=== PATIENT | female | born 1965 | race Caucasian/White ===

== ENCOUNTER 2023-02-27 10:54 | Emergency (ER) | payer BC, SELFPAY ==
--- NOTE | 2023-02-27 11:14 | ED.FEMALEGU ---
HPI - Female Genitourinary General Chief complaint: Urogenital-Female Stated complaint: uti symptoms Time Seen by Provider: 02/27/23 11:14 Source: patient Mode of arrival: ambulatory Limitations: no limitations History of Present Illness HPI Narrative: 57-year-old female presents with complaint of lower abdominal cramping, dysuria, frequency for the past 2 days. Afebrile. Denies nausea vomiting diarrhea. No back pain. No history of frequent urinary tract infections. All systems reviewed and negative except as noted above. Related Data Home Medications Medication Instructions Recorded Confirmed fluticasone propionate 110 1 puff inhalation DAILY 02/27/23 02/27/23 mcg/actuation HFA aerosol inhaler (Flovent HFA) levothyroxine 100 mcg tablet 100 mcg PO DAILY 02/27/23 02/27/23 Allergies Allergy/AdvReac Type Severity Reaction Status Date / Time codeine Allergy Hives Verified 02/27/23 11:26 Sulfa (Sulfonamide Allergy Rash Verified 02/27/23 11:26 Antibiotics) Review of Systems Review of Systems: CONSTITUTIONAL: Denies fever, chills, or sweats. EYES: Denies visual changes, redness, or discharge. ENT: Denies rhinorrhea, congestion, sore throat, or otalgia. CARDIOVASCULAR: Denies chest pain, palpitations, or edema. RESPIRATORY: Denies cough or dyspnea. GASTROINTESTINAL: Reports lower abdominal cramping. Denies nausea, vomiting, or diarrhea. GENITOURINARY: reports dysuria, frequency. Denies hematuria. SKIN: Denies rash or itching. MUSCULOSKELETAL: Denies back pain, joint pain, or myalgia. NEUROLOGIC: Denies headache, numbness, or weakness. PSYCHIATRIC: Denies anxiety or depression. All other systems reviewed are negative, except as documented in HPI. PMFSH Comments At time of signature, agree with nursing past medical, surgical, social and family history. There is no relevant family history pertinent to the presenting complaint. Exam Narrative: GENERAL: This is a well-nourished, well-developed patient, in no apparent distress. HEAD: normocephalic, atraumatic. EYES: PERRL. Sclera clear/white. Vision is grossly intact. EARS: External ears normal NOSE: External nose normal NECK: Neck supple, non-tender without lymphadenopathy, masses or thyromegaly. CARDIOVASCULAR: Regular rate and rhythm without murmurs, gallops, or rubs. RESPIRATORY: Clear to auscultation. Breath sounds equal bilaterally. No wheezes, rales, or rhonchi. GASTROINTESTINAL: Abdomen soft, non-tender, nondistended. Bowel sounds are active. No hepato-splenomegaly, or palpable masses. No guarding. SKIN: warm, Dry, intact with no suspicious lesions or rash, good texture and turgor. NEURO: awake, alert, and oriented to person, place and time. There were no obvious focal neurologic abnormalities. EXTREMITIES: No joint tenderness, effusion, or edema noted. Course Course Level of Care: Express Care Visit Vital Signs Vital signs: Vital Signs Temperature 36.7 C 02/27/23 11:17 Pulse Rate 66 02/27/23 11:17 Respiratory Rate 16 02/27/23 11:17 Blood Pressure 124/84 02/27/23 11:17 Pulse Oximetry 100 02/27/23 11:17 Oxygen Delivery Room Air 02/27/23 11:17 Temperature 36.7 C 02/27/23 11:17 Pulse Rate 66 02/27/23 11:17 Respiratory Rate 16 02/27/23 11:17 Blood Pressure 124/84 02/27/23 11:17 Pulse Oximetry 100 02/27/23 11:17 Oxygen Delivery Room Air 02/27/23 11:17 reviewed MDM - Female Genitourinary MDM Narrative Medical decision making narrative: Patient is aware of diagnosis, understands and agrees to treatment plan. Anticipatory guidance given. Patient agrees to follow-up as directed and is aware of reasons to seek care at the emergency department. Portions of this record may have been created with voice recognition software Differential Diagnosis Differential diagnosis: Likely urinary tract infection Lab Data Labs: Urine Glucose Negative
[2023-02-27 11:17] VITALS: BP 124/84; PULSE 66; RESP 16; TEMP 36.7; O2SAT 100
== END 2023-02-27 11:42 | disposition home or self-care (01) ==
PROVIDERS: Emergency Provider Nurse Practitioner Family; PCP Internal Medicine
DX: N39.0 Urinary tract infection, site not specified (principal); E03.9 Hypothyroidism, unspecified
CPT/HCPCS: 81003; 87086; 99213; G0463

== ENCOUNTER 2024-10-05 11:55 | Emergency (ER) | payer OTHER, SELFPAY ==
--- NOTE | ~2024-10-05 | XR_ITS ---
EXAMINATION: XR chest 2V DATE: 10/05/2024 12:49 INDICATION: Painful cough. TECHNIQUE: Frontal and lateral views of the chest were obtained. COMPARISON: None. FINDINGS: There is no pneumonia, pleural effusion, or pneumothorax. The heart size is normal. IMPRESSION: 1. No acute cardiopulmonary disease. Reviewed, dictated and finalized at location A. DATA ARCHITECT
[2024-10-05 12:11] VITALS: BP 134/74; PULSE 73; RESP 16; TEMP 36.7; O2SAT 100
--- NOTE | 2024-10-05 12:20 | ED_ITS ---
HPI - URI/Sore Throat General Chief Complaint: Upper Respiratory Infection Stated Complaint: Fatigue, Ear pain, Chest pain Time Seen by Provider: 10/05/24 12:35 Source: patient, RN notes reviewed and old records reviewed Mode of arrival: ambulatory Limitations: no limitations History of Present Illness HPI Narrative: patient presents with complaints of flu-like symptoms that began 2 days ago. She has not been taking anything for her symptoms. She reports most bothersome symptom is cough and fatigue. She reports that cough is minimally productive. She denies any fever. She is not in any distress, including respiratory distress Related Data Home Medications ?Medication ?Instructions ?Recorded ?Confirmed ?Last Taken ?Type fluticasone propionate 110 1 puff inhalation DAILY 02/27/23 02/27/23 Unknown History mcg/actuation HFA aerosol inhaler (Flovent HFA) levothyroxine 100 mcg tablet 100 mcg PO DAILY 02/27/23 02/27/23 Unknown History Allergies Allergy/AdvReac Type Severity Reaction Status Date / Time codeine Allergy Mild Hives Verified 10/05/24 11:58 Sulfa (Sulfonamide Allergy Mild Rash Verified 10/05/24 11:58 Antibiotics) Review of Systems Review of Systems: All systems reviewed & are unremarkable except as noted in HPI and below Constitutional: Constitutional: Reports no additional constitutional complaints, Reports body ache(s), Reports chills, Reports fatigue and Reports headache(s) ENT: Reports system reviewed and no additional complaints, except as documented, Reports nasal congestion, Reports nasal discharge and Reports sore throat Cardiovascular: Cardiovascular: Reports no additional cardiovascular complaints Respiratory: Respiratory: Reports no additional respiratory complaints and Reports cough Gastrointestinal: Gastrointestinal: Reports no additional gastrointestinal complaints PMFSH Comments At the time of my signature, I reviewed and agree with the nursing past medical, surgical, social, and family history. There is no relevant family history pertinent to the patient complaint. Exam Const: General: cooperative, no acute distress, alert, awake and uncomfortable Orientation/consciousness: oriented to person, oriented to place and oriented to time HENMT: Head: normal to inspection Ears: TM's normal bilaterally Mouth: Yes moist mucous membranes Resp: Effort & Inspection: normal respiratory effort and able to speak in complete sentences Auscultation: clear to auscultation bilaterally, no crackles, no rales, no rhonchi and no wheezes Cardio: Palpation: normal PMI Rate: regular rate Rhythm: regular rhythm Heart sounds: S1 normal heart sound present and S2 normal heart sound present Neuro: General: oriented to person, oriented to place and oriented to time Cranial nerves: Yes CN's II-XII intact bilaterally Psych: Appearance: grossly normal Thought process: Normal thought process present Insight: Good insight present (Psych) Judgement: Good judgement present (Psych) Course Course Level of Care: Express Care Visit Vital Signs Vital signs: Vital Signs Temperature 98.1 F 10/05/24 12:11 Pulse Rate 73 10/05/24 12:11 Respiratory Rate 16 10/05/24 12:11 Blood Pressure 134/74 10/05/24 12:11 Pulse Oximetry 100 10/05/24 12:11 Oxygen Delivery Room Air 10/05/24 12:11 Temperature 98.1 F 10/05/24 12:11 Pulse Rate 73 10/05/24 12:11 Respiratory Rate 16 10/05/24 12:11 Blood Pressure 134/74 10/05/24 12:11 Pulse Oximetry 100 10/05/24 12:11 Oxygen Delivery Room Air 10/05/24 12:11 Reviewed MDM - URI/Sore Throat MDM Narrative Medical decision making narrative: reassuring physical exam, negative COVID, negative flu. Chest x-ray unremarkable. Symptoms likely viral in origin. Supportive care measures discussed. The patient is nontoxic appearing. Discharge instructions reviewed with patient, as well as provided in writing per nursing staff. The instructions also include specific and strict return/GO TO THE ER as well as f/u information. All questions have been answered, and the patient deny any further questions with discharge and discharge plan. Some parts of this dictation were generated by voice recognition software and may contain typographical and/or grammatical inaccuracies. Differential Diagnosis Differential diagnosis: Likely upper respiratory infection, otitis media and sinusitis Medical Records Attestation: I reviewed the patient's medical records. Lab Data Attestation: I reviewed the patient's lab results. Discharge Plan Discharge Clinical Impression: Upper respiratory infection Qualifiers: URI type: unspecified viral URI Qualified Code(s): J06.9 - Acute upper respiratory infection, unspecified Patient Disposition: Home, Self-Care Condition: Stable Instructions: Antibiotic Form, Viral Syndrome (ED) Additional Instructions: use [id number] medications to treat your symptoms. Follow package instructions. Follow-up with primary care provider. Emergency department for new or worse symptoms Patient Language: [place] Prescriptions: No Action levothyroxine 100 mcg tablet 100 mcg PO DAILY fluticasone propionate [Flovent HFA] 110 mcg/actuation HFA aerosol inhaler 1 puff INHALATION DAILY amoxicillin-pot clavulanate [Augmentin] 500-125 mg tablet 1 tablet PO BID 5 Days Qty: 10 0RF Follow-up/Referrals: Apollo,MD Mercedes ([place]heng[place]) [Primary Care Provider] - 2 Weeks Stand Alone Forms: Work/School Release IP Time of Disposition: 13:10
[2024-10-05 12:35] LABS: EDCOVIDSCREEN Negative (Negative); EDINFLUASCREEN Negative (Negative); EDINFLUBSCREEN Negative (Negative)
--- OUTSIDE RECORDS SUMMARY | 2024-10-05 13:05 | XMS_ITS | Encounter Summary ---
Author Organization [facility] Address [address] [place] [address] [place] [address] Care Team Providers Care Mannequin Mold Maker Name Role Phone Get Rodrigues MD Primary Care Provider Unav ailable Encounter Details Date Type Department Care Team (Late st Contact Info) Description 12/02/2021 [employer] Message Enc [facility], [address] [id number] [employer], [facility] Provider monitor results Social History Tobacco Use Types Packs/Day Years Used Date Smoking Tobacco: Never Smokeless Tobacco: Never Alcohol Use Standard Drinks/Week Comments Yes 0 (1 standard drink = 0.6 oz pur e alcohol) beer- 4 a month PHQ-2 Answer Date Recorded PHQ-2 Score - If the patient scores above 3, please move on to questions 3-9 0 10/22/2021 Comments No Sex and Gender Information Value Date Recorded Sex Assigned at Not on file Legal Sex Female 7:09 PM CDT Gender Identity Not on file Sexual Orientation Not on file 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 Unable to assess 11/12/2021 9:15 AM MEDICAL LAB ASSISTANT documented as of this encounter Plan of Treatment Not on file documented as of this encounter Visit Diagnoses Not on filedocumented in this encounter Additional Health Concerns Assessment Noted Time PHQ-9 Depression Total Score: 0 10/22/19 22 8:50 AM MEDICAL LAB ASSISTANT documented as of this encounter Care Teams Mannequin Mold Maker Relationship Specialty Start Date End Date Get Rodrigues MD PCP - General FAMILY PRACTICE 10/18/19 12/31/22 documented as of this encounter
--- OUTSIDE RECORDS SUMMARY | 2024-10-05 13:05 | XMS_ITS | Data Portability ---
Author Organization [facility], [employer] Address [address] [address] Assessment Encounter Date Assessment Date Assessment LastModified by Organization Details LastModified Time 07/30/2022 07/30/[address] Get [facility] Not available 07/30/2022 15:13:38 09/10/2022 09/10/2022 Patient presente d for follow up. Studies ordered as below. Discussed plan with patient/caregiver , who expressed understanding. Follow up as noted below. Transferred care from Dr Get [facility] Not available 09/10/2022 16:10:28 09/14/2023 09/14/2023 Recommends healthy nutrition, including a diet rich in fruits and vegetables, minimizing simple carbohydrates, salt, and saturated fats. Encouraged regular cardiovascular exercise such as walking at least 30 minutes daily, [address] [facility] Not available 09/14/2023 16:36:07 09/15/2024 09/15/2024 Recommends healthy nutrition, including a diet rich in fruits and vegetables, minimizing simple carbohydrates, salt, and saturated fats. Encouraged regular cardiovascular exercise such as walking at least 30 minutes daily, [address] [facility] Not available 09/15/2024 09:42:09 Plan of Treatment Reminders Order Date Submit Date Provider Last Modified By Organization Details Last Modified Time Details Appointments ESTABLISH ED PATIENT 15 2024 07:45A Vineet Bustillos MD Not available Not available Not available Lab HIV (1+2) Ab screen, serum 2021 022 NORBERTO Not available 07/30/2022 15:28:57 lipid panel, blood 2021 022 NORBERTO Not available 07/30/2022 15:28:58 CMP, serum or plasma 2021 NORBERTO Not available 07/30/2022 15:28:59 CBC w/ auto diff 2021 NORBERTO Not available 07/30/2022 15:28:57 urinalysi s complete, reflex culture 2021 NORBERTO Not available 07/30/2022 15:28:58 hepatitis C virus Ab, serum 2021 NORBERTO Not available 07/30/2022 15:28:59 TSH, serum or plasma 2021 NORBERTO Not available 07/30/2022 15:28:58 T4, free, serum 2021 NORBERTO Not available 07/30/2022 15:28:59 T3, free, serum or plasma 2021 NORBERTO Not available 07/30/2022 15:28:57 lipid panel, blood 2022 023 INTERFACE Not available 03/17/2023 06:53:45 CMP, serum or plasma 2022 023 NORBERTO Not available 03/17/2023 06:53:43 TSH, serum or plasma 2022 023 NORBERTO Not available 03/17/2023 06:53:45 T4, free, serum 2022 023 NORBERTO Not available 03/17/2023 06:53:44 T3, free, serum or plasma 2022 023 INTERFACE Not available 03/17/2023 06:53:45 HIV (1+2) Ab screen, serum 2022 023 INTERFACE Not available 03/17/2023 06:53:45 CBC w/ auto diff 2023 024 NORBERTO Not available 09/15/2023 16:12:54 CMP, serum or plasma 2023 024 NORBERTO Not available 09/15/2023 16:12:55 TSH, serum or plasma 2023 024 NORBERTO Not available 09/15/2023 16:12:57 T4, free, serum 2023 024 NORBERTO Not available 09/15/2023 16:12:56 T3, free, serum or plasma 2023 024 NORBERTO Not available 09/15/2023 16:12:56 lipid panel, serum 2024 025 [facility], [address] [facility], [place], [address], 09/15/2024 09:48:06 CMP, serum or plasma 2024 025 [facility], [address] [place], [address], 09/15/2024 09:48:08 CBC w/ auto diff 2024 025 [facility], [address] [place], [address], 09/15/2024 09:48:07 HbA1c (hemoglob in A1c), blood 2024 025 [facility], [address] [place], [address], 09/15/2024 09:48:07 TSH + free T4, serum 2024 025 [facility], [address] [place], [address], 09/15/2024 09:48:06 T3, free, serum or plasma 2024 025 [facility], [address] [place], [address], 09/15/2024 09:48:06 Referral gynecolog ist referral 2021 022 jerzy Ramachandran MD, [address] [place] [address], [address], 08/27/2022 08:35:51 gynecolog ist referral 2022 023 jerzy Ramachandran MD, [address] [facility], [facility] [address], [place], [address], 10/13/2022 09:16:21 gynecolog ist referral 2023 024 jerzy Ramachandran MD, [address] [facility], [address], [place], [address], 09/14/2023 16:47:43 gynecolog ist referral 2024 025 jerzy Ramachandran MD, [address] [facility], [facility] [address], [place], [address], 09/15/2024 09:54:44 gastroent erologist referral 2024 025 jerzy Stoddard MD, [address] [place], [address], 09/15/2024 09:54:44 Procedures None recorded. Surgeries None recorded. Imaging XR, chest, 2 view 2021 [facility] Centralized Scheduling, Centralized Scheduling, [address] [place], [address], 08/06/2022 08:19:42 MAMMO, screening , digital, bilateral 2021 [facility] Centralized Scheduling, Centralized Scheduling, [address] [place], [address], 07/30/2022 15:39:11 bone density 2021 [facility] Centralized Scheduling, Centralized Scheduling, [address] [place], [address], 08/06/2022 08:19:42 XR, chest, 2 view 2022 023 [facility] Patient Access Centralized Scheduling, Centralized Scheduling, [address] [facility] [place], [address], 09/17/2022 08:19:41 MAMMO, screening , digital, bilateral 2022 023 [facility] Patient Access Centralized Scheduling, Centralized Scheduling, [facility] [place], [address], 04/15/2023 12:14:02 bone density 2022 023 [facility] Centralized Scheduling, Centralized Scheduling, [address] [facility] [place], [address], 09/17/2022 08:19:41 MAMMO, screening , digital, bilateral 2023 024 [facility] Patient Access Centralized Scheduling, Centralized Scheduling, [facility] [place], [address], 05/02/2024 14:42:48 electroca rdiogram 2024 025 [facility], [facility], [address] [facility] [address], [place], [address], 09/15/2024 10:52:41 Medication Orders Proair Digihaler 90 mcg/actua tion aerosol powder breath act, sensor [address] [id number], [address], [place], [id number], 11/22/2023 17:18:30 Proair Digihaler 90 mcg/actua tion aerosol powder breath act, sensor [address] [facility] #[id number], [address], [place], [id number], 11/22/2023 17:18:30 levothyro xine 100 mcg tablet 2023 024 NOR[facility]ERT[facility] #[id number], [address] [facility], [place], [place], [id number], 09/14/2023 16:46:48 levothyro xine 100 mcg tablet 2024 025 NOR[facility]ERT[facility], [address] [place] [address], [address], 09/15/2024 09:50:31 Patient TargetsNo targets recorded. Patient Instructions Encounter Date Encounter Id Patient Instructions Last Modified By Organization Details Last Modified Time 07/30/2022 [id number] heart-healthy diet: care instructions Not available 07/30/2022 15:27:58 spirometry testing* NORBERTO Not available 07/30/2022 16:12:21 advised to lose weight Not available 07/30/2022 15:27:59 09/10/2022 [id number] heart-healthy diet: care instructions Not available 09/10/2022 16:41:59 advised to lose weight Not available 09/10/2022 16:41:59 09/14/2023 [id number] Discussed and explained advance directives such as standard forms to the {{patient caregiv er patient and caregiver}}. Face to face discussion lasted for a duration of ___ minutes. [email or web address] Not available 09/14/2023 15:33:14 09/15/2024 [id number] spirometry testing* NORBERTO Not available 09/15/2024 10:53:21 advised to lose weight Not available 09/15/2024 09:47:16 Discussed and explained advance directives such as standard forms to the {{patient caregiv er patient and caregiver}}. Face to face discussion lasted for a duration of ___ minutes. 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 Referral for Gy necologic examination Referring Physician: Carlos Bustillos Internal Medicine, Encounter Date: 09/15/2024 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 for Family history of cancer of colon Referring Physician: Carlos Bustillos Internal Medicine, Encounter Date: 09/15/2024 Results Created Date Observation Date Name Description Value Unit Range Abnormal Flag Note LastModifiedBy Organization Detail LastModifiedTime 08/18/20 22 08/19/2022 LIPID PANEL , STAND VICKIE cholesterol, total 233 mg/dL <200 high Not Available [address], [address], 08/19/2022 04:16:14 08/18/20 22 08/19/2022 LIPID PANEL , STAND VICKIE HDL cholesterol 71 mg/dL > or = 50 normal Not Available [address], [address], 08/19/2022 04:16:14 08/18/20 22 08/19/2022 LIPID PANEL , STAND VICKIE triglyceride s 83 mg/dL <150 normal Not Available [address], [address], 08/19/2022 04:16:14 08/18/20 22 08/19/2022 LIPID PANEL , STAND VICKIE LDL-choleste rol 143 mg/dL _(william c) high Refer ence range : <100 Julia able range <100 mg/dL for prima ry preve ntion ; <70 mg/dL for patie nts with CHD or diabe tic patie nts with > or = 2 CHD risk facto rs. LDL-C is now calcu lated using the [facility] kins manish cortez, which is a valid ated novel metho d provi sully mcclain accur acy than the Fried tere equat ion in the estim ation of LDL-C . Cherry n SS et al. KELSEY. 2013; 310(1 9): 2061- 2068 (http ://ed ucati on.loanDepot jalenBiothera. com/f aq/FA Q164) Not Available [address] [address] [place], [address], 08/19/2022 04:16:14 08/18/20 22 08/19/2022 LIPID PANEL , STAND VICKIE chol/HDLC ratio 3.3 (calc ) <5.0 normal Not Available [address], [address], 08/19/2022 04:16:14 08/18/20 22 08/19/2022 LIPID PANEL , STAND VICKIE non HDL cholesterol 162 mg/dL _(william c) <130 high For patie nts with diabe emeterio plus 1 major ASCVD risk facto r, treat ing to a non-H DL-C goal of <100 mg/dL (LDL- C of <70 mg/dL ) is consi eveline buenrostro n. Not Available [address] [address] [place], [address], 08/19/2022 04:16:14 08/18/20 22 08/19/2022 COMPR EHENS COLBY METAB OLIC PANEL glucose 87 mg/dL 65-99 normal Fasti ng refer ence inter marcell Not Available [address] [address] [place], [address], 08/19/2022 04:16:15 08/18/20 22 08/19/2022 COMPR EHENS COLBY METAB OLIC PANEL urea nitrogen (BUN) 17 mg/dL 7-25 normal Not Available [address] [address] [place], [address], 08/19/2022 04:16:15 08/18/20 22 08/19/2022 COMPR EHENS COLBY METAB OLIC PANEL creatinine 0.81 mg/dL 0.50-1 .03 normal Not Available [address], [address], 08/19/2022 04:16:15 08/18/20 22 08/19/2022 COMPR EHENS COLBY METAB OLIC PANEL eGFR 85 mL/mi n/1.7 3m2 > or = 60 normal The eGFR is based on the CKD-E PI 2020 equat ion. To calcu late the new eGFR from a previ ous Creat inine or Cysta tin C resul t, go to https ://diana pollard.yuliet elizalde.edith samaniego/darío gutiérrez s/ kdoqi /gfr% 5Fcal culat or Not Available [address], [address], 08/19/2022 04:16:15 08/18/20 22 08/19/2022 COMPR EHENS COLBY METAB OLIC PANEL BUN/creatini ne ratio NOT APPLIC ABLE (calc ) 6-22 Not Available [address], [address], 08/19/2022 04:16:15 08/18/20 22 08/19/2022 COMPR EHENS COLBY METAB OLIC PANEL sodium 137 mmol/ L 135-14 6 normal Not Available [address], [address], 08/19/2022 04:16:15 08/18/20 22 08/19/2022 COMPR EHENS COLBY METAB OLIC PANEL potassium 4.0 mmol/ L 3.5-5. 3 normal Not Available [address], [address], 08/19/2022 04:16:15 08/18/20 22 08/19/2022 COMPR EHENS COLBY METAB OLIC PANEL chloride 101 mmol/ L 98-110 normal Not Available [address], [address], 08/19/2022 04:16:15 08/18/20 22 08/19/2022 COMPR EHENS COLBY METAB OLIC PANEL carbon dioxide 29 mmol/ L 20-32 normal Not Available [address], [address], 08/19/2022 04:16:15 08/18/20 22 08/19/2022 COMPR EHENS COLBY METAB OLIC PANEL calcium 9.5 mg/dL 8.6-10 .4 normal Not Available [address], [address], 08/19/2022 04:16:15 08/18/20 22 08/19/2022 COMPR EHENS COLBY METAB OLIC PANEL protein, total 7.2 g/dL 6.1-8. 1 normal Not Available [address], [address], 08/19/2022 04:16:15 08/18/20 22 08/19/2022 COMPR EHENS COLBY METAB OLIC PANEL albumin 4.3 g/dL 3.6-5. 1 normal Not Available [address], [address], 08/19/2022 04:16:15 08/18/20 22 08/19/2022 COMPR EHENS COLBY METAB OLIC PANEL globulin 2.9 g/dL_ (calc ) 1.9-3. 7 normal Not Available [address], [address], 08/19/2022 04:16:15 08/18/20 22 08/19/2022 COMPR EHENS COLBY METAB OLIC PANEL albumin/glob ulin ratio 1.5 (calc ) 1.0-2. 5 normal Not Available [address], [address], 08/19/2022 04:16:15 08/18/20 22 08/19/2022 COMPR EHENS COLBY METAB OLIC PANEL bilirubin, total 0.7 mg/dL 0.2-1. 2 normal Not Available [address], [address], 08/19/2022 04:16:15 08/18/20 22 08/19/2022 COMPR EHENS COLBY METAB OLIC PANEL alkaline phosphatase 68 U/L 37-153 normal Not Available [facility] [employer] [address], [address], 08/19/2022 04:16:15 08/18/20 22 08/19/2022 COMPR EHENS COLBY METAB OLIC PANEL AST 21 U/L 10-35 normal Not Available [address], [address], 08/19/2022 04:16:15 08/18/20 22 08/19/2022 COMPR EHENS COLBY METAB OLIC PANEL ALT 18 U/L 6-29 normal Not Available [address], [address], 08/19/2022 04:16:15 08/18/20 22 08/19/2022 CBC (INCL UDES DIFF/ PLT) white blood cell count 5.4 thous and/u L 3.8-10 .8 normal Not Available [address], [address], 08/19/2022 04:16:16 08/18/20 22 08/19/2022 CBC (INCL UDES DIFF/ PLT) red blood cell count 4.33 radha on/uL 3.80-5 .10 normal Not Available [address], [address], 08/19/2022 04:16:16 08/18/20 22 08/19/2022 CBC (INCL UDES DIFF/ PLT) hemoglobin 13.5 g/dL 11.7-1 5.5 normal Not Available [address], [address], 08/19/2022 04:16:16 08/18/2008/19/2022 CBC (INCL UDES DIFF/ PLT) hematocrit 38.9 % 35.0-4 5.0 normal Not Available [address], [address], 08/19/2022 04:16:16 08/18/20 22 08/19/2022 CBC (INCL UDES DIFF/ PLT) MCV 89.8 fL 80.0-1 00.0 normal Not Available [address], [address], 08/19/2022 04:16:16 08/18/20 22 08/19/2022 CBC (INCL UDES DIFF/ PLT) MCH 31.2 pg 27.0-3 3.0 normal Not Available [address], [address], 08/19/2022 04:16:16 08/18/2008/19/2022 CBC (INCL UDES DIFF/ PLT) MCHC 34.7 g/dL 32.0-3 6.0 normal Not Available [address], [address], 08/19/2022 04:16:16 08/18/20 22 08/19/2022 CBC (INCL UDES DIFF/ PLT) RDW 11.8 % 11.0-1 5.0 normal Not Available [address], [address], 08/19/2022 04:16:16 08/18/2008/19/2022 CBC (INCL UDES DIFF/ PLT) platelet count 209 thous and/u L 140-40 0 normal Not Available [address], [address], 08/19/2022 04:16:16 08/18/20 22 08/19/2022 CBC (INCL UDES DIFF/ PLT) MPV 11.5 fL 7.5-12 .5 normal Not Available [address], [address], 08/19/2022 04:16:16 08/18/20 22 08/19/2022 CBC (INCL UDES DIFF/ PLT) absolute neutrophils 2392 cells /uL 1500-7 800 normal Not Available [address], [address], 08/19/2022 04:16:16 08/18/20 22 08/19/2022 CBC (INCL UDES DIFF/ PLT) absolute lymphocytes 2176 cells /uL 850-39 00 normal Not Available [address], [address], 08/19/2022 04:16:16 08/18/20 22 08/19/2022 CBC (INCL UDES DIFF/ PLT) absolute monocytes 410 cells /uL 200-95 0 normal Not Available [address], [address], 08/19/2022 04:16:16 08/18/20 22 08/19/2022 CBC (INCL UDES DIFF/ PLT) absolute eosinophils 373 cells /uL 15-500 normal Not Available [address], [address], 08/19/2022 04:16:16 08/18/20 22 08/19/2022 CBC (INCL UDES DIFF/ PLT) absolute basophils 49 cells /uL 0-200 normal Not Available [address], [address], 08/19/2022 04:16:16 08/18/20 22 08/19/2022 CBC (INCL UDES DIFF/ PLT) neutrophils 44.3 % normal Not Available [address], [address], 08/19/2022 04:16:16 08/18/20 22 08/19/2022 CBC (INCL UDES DIFF/ PLT) lymphocytes 40.3 % normal Not Available [address], [address], 08/19/2022 04:16:16 08/18/20 22 08/19/2022 CBC (INCL UDES DIFF/ PLT) monocytes 7.6 % normal Not Available [address], [address], 08/19/2022 04:16:16 08/18/20 22 08/19/2022 CBC (INCL UDES DIFF/ PLT) eosinophils 6.9 % normal Not Available [facility] [address], [address], 08/19/2022 04:16:16 08/18/20 22 08/19/2022 CBC (INCL UDES DIFF/ PLT) basophils 0.9 % normal Not Available [address], [address], 08/19/2022 04:16:16 08/18/20 22 08/19/2022 URINA LYSIS , COMPL ETE W/REF ANTONINO TO CULTU RE color YELLOW yellow normal Not Available [address], [address], 08/19/2022 04:16:17 08/18/2008/19/2022 URINA LYSIS , COMPL ETE W/REF ANTONINO TO CULTU RE appearance CLEAR clear normal Not Available [address], [address], 08/19/2022 04:16:17 08/18/2008/19/2022 URINA LYSIS , COMPL ETE W/REF ANTONINO TO CULTU RE specific gravity 1.012 1.001- 1.035 normal Not Available [address], [address], 08/19/2022 04:16:17 08/18/20 22 08/19/2022 URINA LYSIS , COMPL ETE W/REF ANTONINO TO CULTU RE pH 6.5 5.0-8. 0 normal Not Available [address] [address], [place], [address], 08/19/2022 04:16:17 08/18/20 22 08/19/2022 URINA LYSIS , COMPL ETE W/REF ANTONINO TO CULTU RE glucose NEGATI VE negati ve normal Not Available [address] [address] [place], [address], 08/19/2022 04:16:17 08/18/2008/19/2022 URINA LYSIS , COMPL ETE W/REF ANTONINO TO CULTU RE bilirubin NEGATI VE negati ve normal Not Available [address], [place], [address], 08/19/2022 04:16:17 08/18/20 22 08/19/2022 URINA LYSIS , COMPL ETE W/REF ANTONINO TO CULTU RE ketones NEGATI VE negati ve normal Not Available [address] [address] [place], [address], 08/19/2022 04:16:17 08/18/20 22 08/19/2022 URINA LYSIS , COMPL ETE W/REF ANTONINO TO CULTU RE occult blood NEGATI VE negati ve normal Not Available [facility] [address] [address] [place], [address], 08/19/2022 04:16:17 08/18/2008/19/2022 URINA LYSIS , COMPL ETE W/REF ANTONINO TO CULTU RE protein NEGATI VE negati ve normal Not Available [facility] [address] [address] [place], [address], 08/19/2022 04:16:17 08/18/20 22 08/19/2022 URINA LYSIS , COMPL ETE W/REF ANTONINO TO CULTU RE nitrite NEGATI VE negati ve normal Not Available [address], [address], 08/19/2022 04:16:17 08/18/20 22 08/19/2022 URINA LYSIS , COMPL ETE W/REF ANTONINO TO CULTU RE leukocyte esterase NEGATI VE negati ve normal Not Available [address], [address], 08/19/2022 04:16:17 08/18/2008/19/2022 URINA LYSIS , COMPL ETE W/REF ANTONINO TO CULTU RE WBC NONE SEEN /hpf < or = 5 normal Not Available [address], [address], 08/19/2022 04:16:17 08/18/20 22 08/19/2022 URINA LYSIS , COMPL ETE W/REF ANTONINO TO CULTU RE RBC NONE SEEN /hpf < or = 2 normal Not Available [address], [address], 08/19/2022 04:16:17 08/18/20 22 08/19/2022 URINA LYSIS , COMPL ETE W/REF ANTONINO TO CULTU RE squamous epithelial cells NONE SEEN /hpf < or = 5 normal Not Available [address], [address], 08/19/2022 04:16:17 08/18/20 22 08/19/2022 URINA LYSIS , COMPL ETE W/REF ANTONINO TO CULTU RE bacteria NONE SEEN /hpf none seen normal Not Available [address], [address], 08/19/2022 04:16:17 08/18/20 22 08/19/2022 URINA LYSIS , COMPL ETE W/REF ANTONINO TO CULTU RE hyaline cast NONE SEEN /lpf none seen normal Not Available [address] [address] [place], [address], 08/19/2022 04:16:17 08/18/2008/19/2022 REFLE XIVE URINE CULTU RE reflexive urine culture NO CULTU RE INDIC ATED Not Available [facility] [address] [address] [place], [address], 08/19/2022 04:16:18 08/18/20 22 08/19/2022 HEPAT ITIS C AB W/REF L TO HCV RNA, QN, PCR hepatitis C antibody NON-RE ACTIVE non-re active normal Not Available [facility] [address], [address], 08/19/2022 04:16:19 08/18/2008/19/2022 HEPAT ITIS C AB W/REF L TO HCV RNA, QN, PCR index 0.09 <1.00 normal HCV antib jackie was non-r eacti ve. There is no labor atory evide nce of HCV infec tion. In most cases , no furth er actio n is requi red. Howev er, if recen t HCV expos ure is suspe cted, a test for HCV RNA (test code 45527 ) is sugge sted. For addit ional infor josé miguel cortez pleas e refer to http: //[facility]even griffiths stdia gnost ics.c om/fa q/FAQ 22v1 (This link is being provi ded for infor josé miguel tobias/ educa emily l purpo ses only. ) Not Available [facility] [address] [address] [place], [address], 08/19/2022 04:16:19 08/18/2008/19/2022 T4, FREE T4, free 1.2 NG/dL 0.8-1. 8 normal Not Available [facility] [address] [address] [place], [address], 08/19/2022 04:16:19 08/18/20 22 08/19/2022 TSH TSH 2.19 mIU/L 0.40-4 .50 normal Not Available [address], [address], 08/19/2022 04:16:20 08/18/20 22 08/19/2022 T3, FREE T3, free 3.1 pg/mL 2.3-4. 2 normal Not Available [address] [place], [address], 08/19/2022 04:16:21 09/10/19 23 09/10/2022 channing metry testi ng* Spirometry Not Available [facility], [address], [place], [address], 07/30/2022 15:06:01 03/16/20 23 03/17/2023 LIPID PANEL , STAND VICKIE cholesterol, total 213 mg/dL <200 high Not Available [address], [address], 03/17/2023 06:53:41 03/16/20 23 03/17/2023 LIPID PANEL , STAND VICKIE HDL cholesterol 67 mg/dL > or = 50 normal Not Available [address], [address], 03/17/2023 06:53:41 03/16/20 23 03/17/2023 LIPID PANEL , STAND VICKIE triglyceride s 51 mg/dL <150 normal Not Available [facility] [address] [place], [address], 03/17/2023 06:53:41 03/16/2003/17/2023 LIPID PANEL , STAND VICKIE LDL-choleste rol 132 mg/dL _(william c) high Refer ence range : <100 Julia able range <100 mg/dL for prima ry preve ntion ; <70 mg/dL for patie nts with CHD or diabe tic patie nts with > or = 2 CHD risk facto rs. LDL-C is now calcu lated using the [facility] kins manish cortez, which is a valid ated novel gregoria dunbar acy than the Fried tere bradley ion in the estim ation of LDL-C . Cherry cortez SS et al. KELSEY. 2013; 310(1 9): 2061- 2068 (http ://ed ucati on.Qu estDi anitraM.[employer]. com/f aq/FA Q164) Not Available [facility] [address], [place], [address], 03/17/2023 06:53:41 03/16/2003/17/2023 LIPID PANEL , STAND VICKIE chol/HDLC ratio 3.2 (calc ) <5.0 normal Not Available [facility] [address] [address] [place], [address], 03/17/2023 06:53:41 03/16/2003/17/2023 LIPID PANEL , STAND VICKIE non HDL cholesterol 146 mg/dL _(william c) <130 high For patie nts with diabe emeterio plus 1 major ASCVD risk facto r, treat ing to a non-H DL-C goal of <100 mg/dL (LDL- C of <70 mg/dL ) is consi dered a thera peuti c optio n. Not Available [facility] [address], [place], [address], 03/17/2023 06:53:41 03/16/2003/17/2023 HIV 1/2 ANTIG EN/AN TIBOD Y,FOU RTH GENER ATION W/RFL HIV Ag/Ab, 4TH gen NON-RE ACTIVE non-re active normal HIV-1 antig en and HIV-1 /HIV- 2 antib odies were not detec isidoro. There is no labor atory evide nce of HIV infec tion. PLERADHA E NOTE: This infor josé miguel cortez has been discl osed to you from recor ds whose confi denti ality may be prote cted by state law. If your state requi res such prote ction , then the state law prohi bits you from melodyvita everett mariajose furth er discl osure of the infor matio n witho ut the speci fic writt en conse nt of the perso n to whom it perta ins, or as other castro permi tted by law. A gener al autho rizat ion for the relea se of medic al or other infor matio n is NOT suffi cient for this purpo se. For addit ional infor matio n pleas e refer to http: //[facility] catjian cortez.que stdia gnost ics.c om/fa q/FAQ 106 (This link is being provi ded for infor matjian nal/ educa emily l purpo ses only. ) The perfo rmanc e of this assay has not been clini amie valid ated in patie nts less than 2 years old. Not Available [facility] [address], [address], 03/17/2023 06:53:42 03/16/2003/17/2023 COMPR EHENS COLBY METAB OLIC PANEL glucose 86 mg/dL 65-99 normal Fasti ng refer ence inter marcell Not Available [facility] [address], [address], 03/17/2023 06:53:42 03/16/2003/17/2023 COMPR EHENS COLBY METAB OLIC PANEL urea nitrogen (BUN) 15 mg/dL 7-25 normal Not Available [facility] [address], [address], 03/17/2023 06:53:42 03/16/20 23 03/17/2023 COMPR EHENS COLBY METAB OLIC PANEL creatinine 0.88 mg/dL 0.50-1 .03 normal Not Available [facility] [address], [address], 03/17/2023 06:53:42 03/16/20 23 03/17/2023 COMPR EHENS COLBY METAB OLIC PANEL eGFR 77 mL/mi n/1.7 3m2 > or = 60 normal The eGFR is based on the CKD-E PI 2020 equat ion. To calcu late the new eGFR from a previ ous Creat inine or Cysta tin C resul t, go to https ://diana elizalde.o aden/pr ofess ional s/ kdoqi /gfr% 5Fcal culat or Not Available [address] [address] [place], [address], 03/17/2023 06:53:42 03/16/20 23 03/17/2023 COMPR EHENS COLBY METAB OLIC PANEL BUN/creatini ne ratio NOT APPLIC ABLE (calc ) 6-22 Not Available [address] [address] [place], [address], 03/17/2023 06:53:42 03/16/20 23 03/17/2023 COMPR EHENS COLBY METAB OLIC PANEL sodium 140 mmol/ L 135-14 6 normal Not Available [address] [place], [address], 03/17/2023 06:53:42 03/16/20 23 03/17/2023 COMPR EHENS COLBY METAB OLIC PANEL potassium 4.2 mmol/ L 3.5-5. 3 normal Not Available [address] [address] [place], [address], 03/17/2023 06:53:42 03/16/20 23 03/17/2023 COMPR EHENS COLBY METAB OLIC PANEL chloride 103 mmol/ L 98-110 normal Not Available [facility] [address] [address] [place], [address], 03/17/2023 06:53:42 03/16/20 23 03/17/2023 COMPR EHENS COLBY METAB OLIC PANEL carbon dioxide 30 mmol/ L 20-32 normal Not Available [facility] [address] [address] [place], [address], 03/17/2023 06:53:42 03/16/20 23 03/17/2023 COMPR EHENS COLBY METAB OLIC PANEL calcium 9.4 mg/dL 8.6-10 .4 normal Not Available [address], [address], 03/17/2023 06:53:42 03/16/20 23 03/17/2023 COMPR EHENS COLBY METAB OLIC PANEL protein, total 7.1 g/dL 6.1-8. 1 normal Not Available [address], [address], 03/17/2023 06:53:42 03/16/20 23 03/17/2023 COMPR EHENS COLBY METAB OLIC PANEL albumin 4.4 g/dL 3.6-5. 1 normal Not Available [address], [address], 03/17/2023 06:53:42 03/16/20 23 03/17/2023 COMPR EHENS COLBY METAB OLIC PANEL globulin 2.7 g/dL_ (calc ) 1.9-3. 7 normal Not Available [address], [address], 03/17/2023 06:53:42 03/16/20 23 03/17/2023 COMPR EHENS COLBY METAB OLIC PANEL albumin/glob ulin ratio 1.6 (calc ) 1.0-2. 5 normal Not Available [address], [address], 03/17/2023 06:53:42 03/16/20 23 03/17/2023 COMPR EHENS COLBY METAB OLIC PANEL bilirubin, total 0.5 mg/dL 0.2-1. 2 normal Not Available [address], [address], 03/17/2023 06:53:42 03/16/20 23 03/17/2023 COMPR EHENS COLBY METAB OLIC PANEL alkaline phosphatase 65 U/L 37-153 normal Not Available [facility] [employer] [address], [address], 03/17/2023 06:53:42 03/16/20 23 03/17/2023 COMPR EHENS COLBY METAB OLIC PANEL AST 21 U/L 10-35 normal Not Available [address], [address], 03/17/2023 06:53:42 03/16/20 23 03/17/2023 COMPR EHENS COLBY METAB OLIC PANEL ALT 14 U/L 6-29 normal Not Available [address], [address], 03/17/2023 06:53:42 03/16/20 23 03/17/2023 T3, TOTAL T3, total 111 NG/dL 76-181 normal Not Available [address], [address], 03/17/2023 06:53:43 03/16/20 23 03/17/2023 T4, FREE T4, free 1.3 NG/dL 0.8-1. 8 normal Not Available [address], [address], 03/17/2023 06:53:44 03/16/2003/17/2023 TSH TSH 1.80 mIU/L 0.40-4 .50 normal Not Available [facility] [address], [address], 03/17/2023 06:53:45 09/14/19 24 09/14/2023 COMPL ETE CBC W/AUT O DIFF WBC white blood cell count 5.8 thous and/u L 3.5-10 .0 Not Available [facility] (Main Location) [address] ,[place], [address], 09/15/2023 16:12:54 09/14/19 24 09/14/2023 COMPL ETE CBC W/AUT O DIFF WBC red blood cell count 4.3 radha on/uL 3.5-5. 5 Not Available [facility] (Main Location) [address] ,, [place], [address], 09/15/2023 16:12:54 09/14/19 24 09/14/2023 COMPL ETE CBC W/AUT O DIFF WBC hemoglobin 13.3 g/dL 11.5-1 6.5 Not Available [facility] [address] ,, [place], [address], 09/15/2023 16:12:54 09/14/19 24 09/14/2023 COMPL ETE CBC W/AUT O DIFF WBC hematocrit 41 % 35-55 Not Available [facility] (Main Location) [address] ,, [place], [address], 09/15/2023 16:12:54 09/14/19 24 09/14/2023 COMPL ETE CBC W/AUT O DIFF WBC MCH 31 pg 25-35 Not Available [facility] (Main Location) [address] ,, [place], [address], 09/15/2023 16:12:54 09/14/19 24 09/14/2023 COMPL ETE CBC W/AUT O DIFF WBC MCHC 33 g/dL 31-38 Not Available [facility] (Main Location) [address] ,, [place], [address], 09/15/2023 16:12:54 09/14/19 24 09/14/2023 COMPL ETE CBC W/AUT O DIFF WBC MCV 94 fL 75-100 Not Available [facility]Main Location[facility] [address] ,, [place], [address], 09/15/2023 16:12:54 09/14/19 24 09/14/2023 COMPL ETE CBC W/AUT O DIFF WBC RDW-CV 12 % 11-15 Not Available [facility]Main Location[facility] [address] ,, [place], [address], 09/15/2023 16:12:54 09/14/19 24 09/14/2023 COMPL ETE CBC W/AUT O DIFF WBC neutrophils% 56.4 % Not Available [facility] (Main Location) [facility] [address] ,, [place], [address], 09/15/2023 16:12:54 09/14/19 24 09/14/2023 COMPL ETE CBC W/AUT O DIFF WBC lymphocytes% 34.6 % Not Available [facility]Main Location[facility] [address] ,, [place], [address], 09/15/2023 16:12:54 09/14/19 24 09/14/2023 COMPL ETE CBC W/AUT O DIFF WBC monocytes% 6.2 % Not Available [facility] (Main Location) [facility] [address] ,, [place], [address], 09/15/2023 16:12:54 09/14/19 24 09/14/2023 COMPL ETE CBC W/AUT O DIFF WBC eosinophil % 1.9 % 0.0-7. 0 Not Available [facility]Main [facility] [address] ,, [place], [address], 09/15/2023 16:12:54 09/14/19 24 09/14/2023 COMPL ETE CBC W/AUT O DIFF WBC basophil % 0.7 % 0.0-3. 0 Not Available [facility] (Main Location) [facility] [address] ,, [place], [address], 09/15/2023 16:12:54 09/14/19 24 09/14/2023 COMPL ETE CBC W/AUT O DIFF WBC absolute neutrophils 3.3 cells /uL 1.5-7. 8 Not Available [facility] (Main Location) [facility] [address] ,, [place], [address], 09/15/2023 16:12:54 09/14/19 24 09/14/2023 COMPL ETE CBC W/AUT O DIFF WBC absolute lymphocytes 2.02 cells /uL 0.85-3 .90 Not Available [facility]Main [facility] [address] ,, [place], [address], 09/15/2023 16:12:54 09/14/19 24 09/14/2023 COMPL ETE CBC W/AUT O DIFF WBC absolute monocytes 0.4 cells /uL 0.2-1. 0 Not Available [facility]Main Location[facility] [address] ,, [place], [address], 09/15/2023 16:12:54 09/14/19 24 09/14/2023 COMPL ETE CBC W/AUT O DIFF WBC absolute eosinophils 0.1 cells /uL 0.0-0. 5 Not Available [facility]Main [facility] [address] ,, [place], [address], 09/15/2023 16:12:54 09/14/19 24 09/14/2023 COMPL ETE CBC W/AUT O DIFF WBC absolute basophils 0.0 cells /uL 0.0-0. 2 Not Available [facility]Main Location[facility] ,, [place], [address], 09/15/2023 16:12:54 09/14/19 24 09/14/2023 COMPL ETE CBC W/AUT O DIFF WBC platelet count 226 thous and/u L 100-40 0 Not Available [facility]Main Location[facility] [address] ,, [place], [address], 09/15/2023 16:12:54 09/14/19 24 09/14/2023 CMP (COMP REHEN SIVE METAB OLIC PANEL ) glucose 105 mg/dL 74-99 high Not Available [facility] (Main Location) [facility] [address] ,, [place], [address], 09/15/2023 16:12:55 09/14/19 24 09/14/2023 CMP (COMP REHEN SIVE METAB OLIC PANEL ) urea nitrogen, blood (BUN) 14 mg/dL 6-20 Not Available [facility] (Main Location) [address] [place] [address] [address] ,, [place], [address], 09/15/2023 16:12:55 09/14/19 24 09/14/2023 CMP (COMP REHEN SIVE METAB OLIC PANEL ) total bilirubin 0.3 mg/dL 0.0-1. 2 Not Available [facility] (Main Location) [address] [place] [address] [address] ,, [place], [address], 09/15/2023 16:12:55 09/14/19 24 09/14/2023 CMP (COMP REHEN SIVE METAB OLIC PANEL ) total protein 6.8 g/dL 6.6-8. 7 Not Available [facility] (Main Location) [address] [place] [address] [address] ,, [place], [address], 09/15/2023 16:12:55 09/14/19 24 09/14/2023 CMP (COMP REHEN SIVE METAB OLIC PANEL ) alanine aminotransfe rase (ALT) 20 U/L 0-33 Not Available [facility] (Main Location) [address] [place] [address] [address] ,, [place], [address], 09/15/2023 16:12:55 09/14/19 24 09/14/2023 CMP (COMP REHEN SIVE METAB OLIC PANEL ) alkaline phosphatase 79 U/L 40-130 Not Available [facility] (Main Location) [address] [place] [address] [address] ,, [place], [address], 09/15/2023 16:12:55 09/14/19 24 09/14/2023 CMP (COMP REHEN SIVE METAB OLIC PANEL ) aspartate aminotransfe rase (AST) 26 U/L 0-32 Not Available [facility] (Main Location) [address] [place] [address]. [address] ,, [place], [address], 09/15/2023 16:12:55 09/14/19 24 09/14/2023 CMP (COMP REHEN SIVE METAB OLIC PANEL ) calcium 9.3 mg/dL 8.6-10 .2 Not Available [facility] (Main Location) [address] [place], [place] [address] ,, [place], [address], 09/15/2023 16:12:55 09/14/19 24 09/14/2023 CMP (COMP REHEN SIVE METAB OLIC PANEL ) albumin 4.4 g/dL 3.5-5. 2 Not Available [facility] (Main Location) [address] [place] [address] [address] ,, [place], [address], 09/15/2023 16:12:55 09/14/19 24 09/14/2023 CMP (COMP REHEN SIVE METAB OLIC PANEL ) CO2 30 mmol/ L 22-29 high Not Available [facility] (Main Location) [address] [place] [address] [address] ,, [place], [address], 09/15/2023 16:12:55 09/14/19 24 09/14/2023 CMP (COMP REHEN SIVE METAB OLIC PANEL ) creatinine, serum 0.8 mg/dL 0.5-0. 9 Not Available [facility] (Main Location) [address] [place], [place] [address] ,, [place], [address], 09/15/2023 16:12:55 09/14/19 24 09/14/2023 CMP (COMP REHEN SIVE METAB OLIC PANEL ) sodium, serum 141 mmol/ L 136-14 5 Not Available [facility] (Main Location) [address] [place] [address] [address] ,, [place], [address], 09/15/2023 16:12:55 09/14/19 24 09/14/2023 CMP (COMP REHEN SIVE METAB OLIC PANEL ) potassium, serum 4.6 mmol/ L 3.5-5. 1 Not Available [facility] (Main Location) [address] [place] [address] [address] ,, [place], [address], 09/15/2023 16:12:55 09/14/19 24 09/14/2023 CMP (COMP REHEN SIVE METAB OLIC PANEL ) chloride, serum 103 mmol/ L 98-107 Not Available [facility] (Main Location) [facility] ,, [place], [address], 09/15/2023 16:12:55 09/14/19 24 09/14/2023 CMP (COMP REHEN SIVE METAB OLIC PANEL ) eGFR 102 >59 Persi stent reduc tion for 3 month s or more in an eGFR <60 mL/mi n/1.7 3 m2 defin es CKD. Patie nts with eGFR value s>/=6 0 mL/mi n/1.7 3 m2 may also have CKD if evide nce of persi stent protu niuri a is prese nt. Addit ional infor matjian n may be found at www.k doqi. org. Not Available [facility] (Main Location) [address] [place], [place] [address] ,, [place], [address], 09/15/2023 16:12:55 09/14/19 24 09/14/2023 FREE TRIIO DOTHY MAGNOLIA E (FT3) FT3 2.6 pg/mL 1.5-4. 1 Not Available [facility] (Main Location) [address] [place], [place] [address] ,, [place], [address], 09/15/2023 16:12:56 09/14/19 24 09/14/2023 FREE THYRO XINE (FT4) FT4 1.35 NG/dL 0.93-1 .70 Not Available [facility] (Main Location) [address] [place], [place] [address] ,, [place], [address], 09/15/2023 16:12:56 09/14/19 24 09/14/2023 THYRO ID STIMU LATIN G HORMO NE (TSH) TSH 0.67 ?IU/m L 0.27-4 .20 Not Available [facility] (Main Location) [address] [place], [place] [address] ,, [place], [address], 09/15/2023 16:12:57 09/20/19 25 09/20/2024 channing metry testi ng* Spirometry Not Available [facility] [address] [facility] [address], [place], [address], 09/15/2024 09:22:29 07/30/20 22 07/30/2022 channing metry testi ng* No observ ation record ed. [address] [facility] [address], [place], [address], 09/10/2022 16:45:05 04/15/20 23 04/10/2023 MAMMO , scree kelechi, digit al, bilat eral No observ ation record ed. [address] [facility] [place], [address], 09/14/2023 16:47:42 05/02/20 24 04/29/2024 MAMMO , scree kelechi, digit al, bilat eral No observ ation record ed. [facility] [address] [place], [address], Ph [phone] 05/16/2024 08:18:41 09/15/19 25 09/20/2024 elect rocar diogr am No observ ation record ed. [facility] [address] [facility] [address], [place], [address], 09/20/2024 12:34:51 09/15/19 25 09/15/2024 elect rocar diogr am No observ ation record ed. [facility] [address] [facility] [address], [place], [address], 09/20/2024 12:35:34 09/15/19 25 09/15/2024 channing metry testi ng* No observ ation record ed. [facility] [address], [place], [address], 09/20/2024 12:35:26 Result Notes None recorded. Problems Name Problem SNOMED Code Status Onset Date Resolution Date Notes Provider Name and Address Organization Details Recorded Time Unintentional weight loss 312595153 Active 2022 Not Available [facility] 11:42:06 Asthma 062534437 Active 2022 Not Available [facility] 11:42:06 Hyperlipidemi a 13254672 Active 2022 Not Available [facility] 11:42:06 Hypothyroidis m 22257329 Active 2022 Not Available [facility] 11:42:06 Problem Notes None recorded. 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 Carlos Bustillos MD [address], [place], [address], [facility] 07/30/2022 15:20:11 Imaging Results Imaging Date Name Status LastModified by Organization Details LastModified Time 07/30/2022 spirometry testing* completed [address], [facility] [address], [place], [address], 09/10/2022 16:45:05 04/10/2023 MAMMO, screening, digital, bilateral completed [address] [facility] [place], [address], 09/14/2023 16:47:42 04/29/2024 MAMMO, screening, digital, bilateral completed jerzy [facility] Medicine [facility] [address] [place], [address], Ph [phone] 05/16/2024 08:18:41 09/20/2024 electrocardiogram completed torie [employer] [address], [place], [address], 09/20/2024 12:34:51 09/15/2024 electrocardiogram completed torie [employer] [address], [place], [address], 09/20/2024 12:35:34 09/15/2024 spirometry testing* completed torie Morales [employer] [address] [facility] [address], [place], [address], 09/20/2024 12:35:26 Procedure Notes None recorded. Medical Equipment None Reported. Allergies Allergen ID Allergen Name Allergen Category Reaction Reaction Severity Criticality Documentation Date Start Date Code Code System Note Provider Name and Address Organization Details Recorded Time 47674 Substance with sulfonami de structure and antibacte rial mechanism of action (substanc e) medicatio n rash Not available Not available 07/30/2022 79772 8003 [facility]ED [facility] 14:13:09 [address] codeine medicatio n hives Not available Not available 07/30/2022 2670 RxNorm [facility] 14:13:26 [address] Singulair medicatio n seizure Not available Not available 07/30/2022 51210 9 RxNorm [facility] 14:13:45 Medications Name Sig Start Date Stop Date Status Note LastModified by Organization Details LastModified Time cyclobenz aprine 10 mg tablet TAKE 1 TABLET BY MOUTH THREE TIMES DAILY active Not Available Not Available No t Available prednison e 10 mg tablet 09/14 completed Not Available Not Available Not Available azithromy ariadne 250 mg tablet 07/30 completed Not Available Not Available Not Available peg-elect rolyte solution 420 gram oral solution MIX AND DRINK DIRECTED 07/30 completed Not Available Not Available Not Available levothyro xine 100 mcg tablet Take 1 tablet every day by oral route in the morning. 2024 active Not Available Not Available Not Avai lable benzonata te 100 mg capsule 07/30 completed Not Available Not Available Not Available promethaz ine 25 mg tablet TAKE 1/2 TABLET BY MOUTH EVERY 6 HOURS NEEDED FOR NAUSEA 07/30 completed Not Available Not Available Not Available Advair Diskus 250 mcg-50 mcg/dose powder for inhalatio n USE 1 INHALATI ON EVERY 12 HOURS 07/30 completed -- now on flovent Not Available Not Available Not Available estradiol 0.01% (0.1 mg/gram) vaginal cream active Not Available Not Available Not Available methylpre dnisolone 4 mg tablets in a dose pack FOLLOW PACKAGE DIRECTIO NS 07/30 completed Not Available Not Available Not Available amoxicill in 500 mg-potass ium clavulana te 125 mg tablet TAKE 1 TABLET BY MOUTH TWICE DAILY FOR 5 DAYS 09/14 completed Not Available Not Available Not Available tobramyci n 0.3 %-dexamet hasone 0.1 % eye drops,berta pension 07/30 completed Not Available Not Available Not Available Flovent HFA 110 mcg/actua tion aerosol inhaler INHALE 1 PUFF TWICE A DAY BY INHALATI ON ROUTE 06/06 completed Not Available Not Available Not Available Asmanex HFA 100 mcg/actua tion aerosol inhaler 08/03 completed -- currentl y on Qvar; will change to Trelegy due to nationwi de shortage Not Available Not Available Not Available Qvar RediHaler 40 mcg/actua tion HFA breath activated aerosol Inhale 2 puffs twice a day by inhalati on route for 90 days. 08/03 completed -- nation-w [place] shortage -- changed to Trelegy Not Available Not Available Not Available Proair Digihaler 90 mcg/actua tion aerosol powder breath act, sensor 2 puffs up to 4 times a days as needed only; Must go to the [facility] if no relief after the 4th treatmen t. 11/21 completed Not Available Not Available Not Available Maria De Jesus Ellipta 200 mcg-62.5 mcg-25 mcg powder for inhalatio n Inhale 1 puff every day by inhalati on route for 90 days. 09/15 completed -- had chest pain with it Not Available Not Available Not Available Vitals Date Recorded Body height Body mass index (BMI) Body weight Respiratory rate Body temperature Heart rate Systolic blood pressure Diastolic blood pressure Provider Name and Address Organization Details Last Updated DateTime 2 165.1 cm 26.6 kg/m2 04873.7 8 g 16 /min 98 [degF] 90 /min 135 mm[Hg] 98 mm[Hg] [facility] 2 14:29:38 Date Recorded Body height Body mass index (BMI) Body weight Respiratory rate Body temperature Heart rate Systolic blood pressure Diastolic blood pressure Provider Name and Address Organization Details Last Updated DateTime 3 165.1 cm 26.6 kg/m2 44224.7 8 g 16 /min 97.1 [degF] 76 /min 126 mm[Hg] 81 mm[Hg] [facility] 3 15:34:05 Date Recorded Heart rate Respiratory rate Body temperature Body height Body mass index (BMI) Body weight Systolic blood pressure Diastolic blood pressure Provider Name and Address Organization Details Last Updated DateTime 4 81 /min 16 /min 97.4 [degF] 165.1 cm 24.1 kg/m2 82547.8 9 g 124 mm[Hg] 77 mm[Hg] [facility] 4 15:33:28 Date Recorded Heart rate Respiratory rate Body temperature Body height Body mass index (BMI) Body weight Systolic blood pressure Diastolic blood pressure Provider Name and Address Organization Details Last Updated DateTime 5 93 /min 16 /min 96.1 [degF] 165.1 cm 25 kg/m2 75133.8 6 g 135 mm[Hg] 73 mm[Hg] [facility] 08:52:32 Social History Question Answer Notes LastModified by Organizat ion Details LastModified Time Tobacco Smoking Status Never Smoker Tona Farrell [facility] 07/30/2022 14:16:56 Do You Have An Advance Directive? No Information not available 09/10/2022 What Is Your Level Of Alcohol Consumption? Occasional Information not available 07/30/2022 How Many Years Have You Consumed Alcohol? 20 Information not available 07/30/2022 Do You Wear A Helmet When Biking? No Information not available 09/10/2022 Are You Blind Or Do You Have Difficulty Seeing? No Information not available 09/10/2022 Is Blood Transfusion Acceptable In An Emergency? Yes Information not available 09/10/2022 What Is Your Level Of Caffeine Consumption? Occasional Information not available 09/10/2022 What Type Of Upsetter Helper Do You Use? None Information not available 09/10/2022 What Is Your Code Status? Full Code Unless She Is In Bad Shape And Does Not Need To Be Saved Information not available 09/10/2022 In The 14 Days Before Symptom Onset, Have You Had Close Contact With A Laboratory-confi rmed COVID-19 While That Case Was Ill? No Information not available 09/10/2022 In The 14 Days Before Symptom Onset, Have You Had Close Contact With A Person Who Is Under Investigation For COVID-19 While That Person Was Ill? No Information not available 09/10/2022 Have You Been To An Area Known To Be High Risk For COVID-19? No Information not available 09/10/2022 Are You Currently Employed? Yes [employer] Information not available 09/10/2022 Are You Deaf Or Do You Have Serious Difficulty Hearing? No Information not available 09/10/2022 What Type Of Diet Are You Following? REGULAR Information not available 09/10/2022 Have You Processed Blood Or Body Fluids From An Ebola Virus Disease Patient Without Appropriate PPE? No Information not available 09/10/2022 Do You Reside In Or Have You Traveled To An Area Where Ebola Virus Transmission Is Active? No Information not available 09/10/2022 What Is The Highest Grade Or Level Of School You Have Completed Or The Highest Degree You Have Received? [id number] Information not available 09/10/2022 Have There Been Any Changes To Your Family Or Social Situation? No Information not available 09/10/2022 What Is The Fluoride Status Of Your Home? Unknown Information not available 09/10/2022 Are There Any Guns Present In Your Home? No Information not available 09/10/2022 Do You Use Insect Repellent Routinely? Yes Information not available 09/10/2022 What Was The Date Of Your Most Recent Tobacco Screening? 09/15/2024 Information not available 09/15/2024 How Many Children Do You Have? 2 Information not available 09/10/2022 Are There Any Occupational Health Risks Where You Work? No Information not available 07/30/2022 Do You Have Any Pets? Yes Information not available 09/10/2022 Do You Use Protection During Sex? No Information not available 07/30/2022 What Is Your Relationship Status? Information not available 09/10/2022 Do You Use Your Seat Belt Or Car Seat Routinely? Yes Information not available 09/10/2022 Are You Sexually Active? Yes Information not available 07/30/2022 Do You Have Smoke And Carbon Monoxide Detectors In Your Home? Yes Information not available 09/10/2022 Are You Passively Exposed To Smoke? No Information not available 09/10/2022 What Types Of Sporting Activities Do You Participate In? Run Occasionally Information not available 09/10/2022 Do You Feel Stressed (tense, Restless, Nervous, Or Anxious, Or Unable To Sleep At Night)? [id number] Information not available 09/10/2022 Do You Use Any Illicit Or Recreational Drugs? No Information not available 09/10/2022 Do You Use Sunscreen Routinely? Yes Information not available 09/10/2022 Do You Or Have You Ever Used Any Other Forms Of Tobacco Or Nicotine? No Information not available 09/10/2022 Sex: Unknown Functional Status Question Answer Note LastModified by Organizat ion Details LastModified Time Do you have difficulty walking or climbing stairs? No Information not available 09/10/2022 Do you have transportation difficulties? No Information not available 09/10/2022 Do you have difficulty doing errands alone? No Information not available 09/10/2022 Are you able to care for yourself? Yes Information n ot available 09/10/2022 Do you have difficulty dressing or bathing? No Information not available 09/10/2022 What is your exercise level? Occasional Information not available 09/10/2022 Mental Status Question Answer Note LastModified by Organization D etails LastModified Time Do you have difficulty concentrating, remembering or making decisions? No Information no t available 09/10/2022 Family History Relationship Description Onset Age of this Age Resolved Age Notes LastModified by Organization Details LastModified Time Mother Hypertensive disorder Not available 05/2025 08:43:14 Mother Disorder of muscle musclu lar skelet al pain Not available 09/15/2024 08:43:15 Maternal Grandfather Heart disease -- of SD in his 50s Not available 07/30/2022 15:16:25 Brother Malignant tumor of colon (Chad) -- dx'd w/ colon cancer at 42 y/o Not available 09/15/2024 08:43:15 Sister Idiopathic pulmonary fibrosis (Bever ly) -- Not available 09/15/2024 08:43:15 Sister Idiopathic pulmonary fibrosis (Jeri ) Not available 09/15/2024 08:43:15 Sister Malignant tumor of ovary 71 (Jeri ) -- Granul theodore cell tumor of the ovary at 71 y/o Not available 09/15/2024 09:32:05 Notes:--- no FH for DM Medical History No medical history recorded. Gynecological History Statement/Question Response If Post Menopausal, Age at Menopause 51 Date of Last Mammogram 04/29/2024 Date of Last Colonoscopy 04/15/2023 Obstetrics History GPAL:G 2 P 0 0 0 0 Immunizations Vaccine Type Date Status Note Provider Nam e and Address Organization Details Recorded Time zoster recombinant 03/11/2023 completed Carlos Bustillos MD [address], [place], [address], [facility] 09/14/2023 16:34:06 zoster recombinant 07/21/2023 completed Carlos Bustillos MD [address], [place], [address], [facility] 09/14/2023 16:34:18 Past Encounters Encounter ID Performer Location Encounter Start Date Encounter Closed Date Diagnosis/Indication Diagnosis SNOMED-CT Code Diagnosis ICD10 Code Diagnosis Note [id number] Carlos Bustillos MD [facility] ([place], [place]), [facility] [address] [place] [address] 07/30/2022 13:41:09 07/30/2022 15:39:10 Hypothyroidism 84992177 E03.9 (had Graves disease s/p MAYNARD) -- on same dose of Levothyrox ine 100 mcg qAM in the last 30 yrs Asthma 797289568 J45.90 9 Hyperlipidemia 45437726 E78.5 (controlle d w/ lifestyle modificati on) Screening for osteoporosis 188216632 Z13.820 Body mass index 25-29 - overweight 469398036 Z68.26 -- will advise weight loss-- pt's BMI today is 26.6 (ideal is between 20-25) Unintentio nal weight loss 395975259 R63.4 Hepatitis C screening 41 1167226 Z11.59 Active or passive immunization 173288867 Z23 Screening for malignant neoplasm of colon 782697264 Z12.11 -- done in Jul [address] Fer Stoddard Screening for malignant neoplasm of breast 298887595 Z12.31 -- pt reported she had a normal screening mammogram at [facility] Screening for malignant neoplasm of cervix 751302356 Z12.4 [id number] Carlos Bustillos MD [facility], [facility] [address] [place] [address] 09/10/2022 15:26:24 09/10/2022 16:48:56 Adult health examination 693189650 Z00.00 Hypothyroidism 23668987 E03.9 (had Graves disease s/p MAYNARD) -- on same dose of Levothyrox ine 100 mcg qAM in the last 30 yrs-- chemically Euthyriod- - recheck labs on 02/17/23 Asthma 652084567 J45.90 9 -- spirometry done on 07/30/22-- quiescent (last inhaler use was around January 2022) Hyperlipidemia 85686803 E78.5 (uncontrol led w/ lifestyle modificati on) -- Based on the current ASCVD risk calculatio n of 2.3% on 08/18/22, will not start cholestero l med but will issue diet -- need to avoid Cheese (cheese on burgers, Pizza, lasagna, Billy, Parmesan), -- you will also need to limit egg yolks to 2 yolks a week (but as many egg whites he wants).-- Avoid Mendoza,-- trim off fatty rubbery meat before consuming, -- avoid butter & Margarine, -- No whole milk or 2% milk (but 1%, 1/2% & fat free milk is fine).-- recheck labs on 02/17/23 Unintentio nal weight loss 661750906 R63.4 -- CXR ordered but not done yet-- weight loss halted-- CBC & TFTs on 08/18/22 were within normal ranges Body mass index 25-29 - overweight 067045020 Z68.26 -- advised weight loss; no weight change since her last visit-- pt's BMI today is 26.6 (ideal is between 20-25) Screening for osteoporosis 336701538 Z13.820 -- bone density ordered Hepatitis C screening 41 1306232 Z11.59 -- tested negative for Hepatitis C on 08/18/22 Active or passive immunization 524901776 Z23 Screening for malignant neoplasm of colon 084983373 Z12.11 -- done in Jul [address] Fer Stoddard Screening for malignant neoplasm of breast 062040803 Z12.31 -- pt reported she had a normal screening mammogram at [facility] Screening for malignant neoplasm of cervix 692637347 Z12.4 -- referred pt to Super[facility] Dr Neda Ramachandran HIV screening 046038101 Z11.4 [id number] Carlos Bustillos MD [facility], [facility] [address] [place] [address] 09/14/2023 15:10:44 09/14/2023 16:47:43 Adult health examination 166291231 Z00.00 -- check labs today Hypothyroidism 52245418 E03.9 (had Graves disease s/p MAYNARD) -- on same dose of Levothyrox ine 100 mcg qAM in the last 30 yrs-- chemically Euthyriod- - recheck labs today Hyperlipidemia 63646338 E78.5 (uncontrol led w/ lifestyle modificati on) -- Based on the current ASCVD risk calculatio n of 2.3% on 08/18/22, will not start cholestero l med but will issue diet -- need to avoid Cheese (cheese on burgers, Pizza, lasagna, Billy, Parmesan), -- you will also need to limit egg yolks to 2 yolks a week (but as many egg whites he wants).-- Avoid Mendoza,-- trim off fatty rubbery meat before consuming, -- avoid butter & Margarine, -- No whole milk or 2% milk (but 1%, 1/2% & fat free milk is fine).-- recheck labs today Body mass index 20-24 - normal 965722216 Z68.24 -- pt lost 15 # since her last visit; pt's BMI is 24.1 (ideal is between 20-25) Hepatitis C screening 41 9656167 Z11.59 -- tested negative for Hepatitis C on 08/18/22 HIV screening 141080458 Z11.4 -- tested negative for HIV on 03/16/23 Active or passive immunization 277921179 Z23 -- pt does not want Flu shot Screening for malignant neoplasm of colon 610559123 Z12.11 -- done in Jul [address] Fer Stoddard Screening for malignant neoplasm of breast 181374233 Z12.31 -- mammogram done 04/10/23 Gynecologi c examination 79484381 Z01.419 -- pt reported she had a normal [employer] exam w/ Dr Neda Ramachandran in Jul 2023 [id number] Carlos Bustillos MD [facility] [address] [place] [address] 09/15/2024 08:43:05 09/15/2024 09:54:44 Adult health examination 948146074 Z00.00 -- check labs today Hyperglycemia 29412908 R 73.9 Hyperlipidemia 82063824 E78.5 (uncontrol led w/ lifestyle modificati on) -- Based on the current ASCVD risk calculatio n of 2.3% on 08/18/22, will not start cholestero l med but will issue diet -- need to avoid Cheese (cheese on burgers, Pizza, lasagna, Billy, Parmesan), -- you will also need to limit egg yolks to 2 yolks a week (but as many egg whites he wants).-- Avoid Mendoza,-- trim off fatty rubbery meat before consuming, -- avoid butter & Margarine, -- No whole milk or 2% milk (but 1%, 1/2% & fat free milk is fine).-- recheck labs today Atypical chest pain 1025 88241 R07.89 -- when she was on Trelegy (was on it for less than 1 month due to chest pain)-- ran a half-Amiato in May 2024 without any angina or angina-equ ivalent symptoms Asthma 981066025 J45.90 9 -- originally has SOB relieved w/ Albuterol inhaler; was dx'd w/ Asthma by prior PCP Dr Get Trejo.- - spirometry done 09/15/24-- quiescent (last inhaler use was around January 2022) Body mass index 25-29 - overweight 787319357 Z68.25 -- advised weight loss; pt gained 5 # since her last visit-- pt's BMI today is 25 (ideal is between 20-25) Hypothyroidism 67180776 E03.9 (had Graves disease s/p MAYNARD) -- on same dose of Levothyrox ine 100 mcg qAM in the last 30 yrs-- chemically Euthyriod- - recheck labs today Hepatitis C screening 41 9066788 Z11.59 -- tested negative for Hepatitis C on 08/18/22 HIV screening 145243969 Z11.4 -- tested negative for HIV on 03/16/23 Active or passive immunization 927074416 Z23 -- pt does not want Flu shot Screening for malignant neoplasm of colon 124216180 Z12.11 -- done in Jul [address] Fer Stoddard Screening for malignant neoplasm of breast 021970030 Z12.31 -- mammogram done 04/29/24 Gynecologi c examination 86372835 Z01.419 -- pt reported she had a normal [employer] exam w/ Dr Neda Ramachandran in Jul 2023-- next appt scheduled for Oct 2024 Family his tory of cancer of colon 883147418 Z80.0 -- pt reports she has colonoscop y every 3 years (last one was done in 2022) Health Concerns Section Related Observation LastModified by Organization Detai ls LastModified Time None Recorded Concern Status LastModified by Organization Details LastModified Time None Recorded Advance Directives Directive N: Payers Encounter Date Sequence Insurance Name Policy Number Policy Corrales Covered Member ID Corrales Member ID Guarantor Name 07/30/2022 1 [place] [id number] Jackie [place] [id number] Ayala Albert 09/10/2022 1 [place] [id number] Jackie [place] [id number] Ayala [place] 09/14/2023 1 [place]) [id number] Jackie [place] [id number] Ayala [place] 09/15/[address] [facility] () Ayala [place] [id number] Ayala Albert Notes Date Note Type Note Provider Name and Address Organization Details Recorded Time 07/30/2022 text/html Pt comes in to g et aquainted medically. She has no acute c/o.Overall, pt feels well and has no c/o.She has no new sx and no increasing sx. Patient denies any jaw or neck discomfort, left arm pain/left arm discomfort, chest discomfort/pain, diaphoresis, breathing symptoms/chest tightness, indigestion sx, n/v, any angina equivalent symptoms, etc. Carlos Bustillos MD [address] [place] [address] [address], [place], [address], [facility] ([place], [place]) 07/30/2022 15:29:41 09/10/2022 text/html Pt comes in for Hypothyroidism, Asthma, HLD, and weight monitoring. Pt also reported she had no had a PE for 'years'. Pt feels well and has no c/o. Pt has no new sx and no increasing sx. Patient denies any jaw or neck discomfort, left arm pain/left arm discomfort, chest discomfort/pain, diaphoresis, breathing symptoms/chest tightness, indigestion sx, n/v, any angina equivalent symptoms, etc. Carlos Bustillos MD [address] [facility] [address], [place], [address], [facility] 09/10/2022 16:46:05 09/14/2023 text/html Pt comes in for f/u of Hypothyroidism, HLD, weight and is also due for annual PE. Pt feels well and has no c/o. Pt has no new sx and no increasing sx. Patient denies any jaw or neck discomfort, left arm pain/left arm discomfort, chest discomfort/pain, diaphoresis, breathing symptoms/chest tightness, indigestion sx, n/v, any angina equivalent symptoms, etc. Carlos Bustillos MD [address] [facility] [address], [place], [address], [facility] 09/14/2023 16:48:06 09/15/2024 text/html Pt comes in for annual PE and f/u HLD, Asthma, Hypothyroidism, and Hyperglycemia. Pt feels well and has no c/o. Pt has no new sx and no increasing sx. Patient denies any jaw or neck discomfort, left arm pain/left arm discomfort, chest discomfort/pain, diaphoresis, breathing symptoms/chest tightness, indigestion sx, n/v, any angina equivalent symptoms, etc. Carlos Bustillos MD [address] [facility] [address], [place], [address], [facility] 09/15/2024 09:52:12 OBGyn Episode No OBEpisode recorded.
--- OUTSIDE RECORDS SUMMARY | 2024-10-05 13:05 | XMS_ITS | Continuity of Care Document ---
Author Name [facility] Organization [facility] Care Team Providers Care Stone Splitter Name Role Phone [facility] Unavailable Unavailable Medications Combined list of outpatient medications from Department of [facility] and [facility] facilities.Medications provided include 1) outpatient medications from the last 15 months, and 2) patient-reported medications. Medication Details Route Status Patient Instructions Prescription Expires Prescription Number Last Dispense Date Ordering Provider Order Date Order Qty Source QVAR RediHaler 40 mcg inhaler [10.6g] See Instruct ions, # 31.8 g, 0 total refill(s ), Hard Stop Ordered 10/26/2024 31.8 Ambul at [facility] Pharmac y Trelegy Ellipta 200 mcg-62.5 mcg-25 mcg inh [60EA] = 1 puff(s), Inhale, # 180 EA, 0 total refill(s ), Hard Stop Inhala tion (breat he in) Ordered 11/02/2024 180.0 Ambul at ory Pharmac y Allergies, Adverse Reactions, Alerts Combined list of allergies from Department of [place] [facility] and [facility] facilities. It does not include entries that were removed or entered in error. Substance Category Reaction Severity Reaction type Status Date Reported Comments Source codeine Drug allergy Active per he is not sure what pt ids actually allergic to
hi ves Ambulatory Pharmacy sulfa drugs Drug allergy Active rash head to toe Ambulatory Pharmacy Vital Signs Combined list of inpatient and outpatient Vital Signs from Department of [employer] and [facility], ranging from 12 months to all on record, depending upon the facility. Vital Sign Value Date Comments Source No data available for this section Ambulatory Pharmacy Encounters Combined list of: 1) Encounters from Department of Veterans Affairs facilities going back up to thelast 18 months. 2) Encounters from the Department of [facility] facilities going back up to 280 months. Location Location Details Encounter Type Encounter Number Reason For Visit Attending Provider ADM Date DC Date Status Disposition Source Ambulator y Pharmacy Lifetime Pharmacy [id number] 07/29 Ambulat ory Pharmac y Procedures Combined list of: 1) Procedures from Department of [facility] Affairs facilities going back up to thelast 18 months, not all [place] non-surgical procedures are included; 2) All procedures from the Department of Defense facilities. Procedure Procedure Type Code Date Perfomer Comments Sourc e No data available for this section Ambulatory P harmacy Assessment and Plan Combined list of future care activities from Department of [facility] and [facility] facilities (e.g., assessment and plan notes, appointments, orders, and referrals). Additional future care activities may be listed in the Plan of Care section. Result Assessment and Plan Date Source Assessment and Plan No data available for this section 10/05/2024 Ambulatory Pharmacy Functional Status Combined list of recent functional and cognitive assessments recorded at [facility] and [facility] [place] Functional Mcdonald Measurement (FIM) Scale: 1 = Total Assistance (Subject = 0% +), 2 = Maximal Assistance (Subject = 25% +), 3 = Moderate Assistance (Subject = 50% +), 4 = Minimal Assistance (Subject = 75% +), 5 = Supervision, 6 = Modified Mcdonald (Device), 7 = Complete Mcdonald (Timely, Safely). Assessment Date/Time Source Assessment Type Assessment Skill Assessment Score Assessment Details No data available for this section
--- OUTSIDE RECORDS SUMMARY | 2024-10-05 13:06 | XMS_ITS | Referral Summary ---
Author Organization [facility] al Address [address] [place] [address] Care Team Providers Care Head Gauge Unit Operator Name Role Phone Carlos Bustillos MD Primary Care Provider [phone] Allergies Active Allergy Reactions Criticality Noted Date Comments Codeine Unknown 04/30/2018 Montelukast Other (See comments) Low 06/26/2021 Tremors Sulfa (Sulfonamide Antibiotics) Rash Medium 10/08 Medications fluticasone propion-salmete roL (ADVAIR DISKUS) 100-50 mcg/dose diskus inhaler Rx: Advair Diskus 100-50 MCG/DOSE Aerosol Powder Breath Activated, TAKE: INHALE 1 PUFF BY MOUTH TWICE A DAY, REFILLS: 99 Active levothyroxine (SYNTHROID) 100 mcg tablet TK 1 T PO QD 7 07/15/2019 Activ e acyclovir (ZOVIRAX) 5 % ointment Prn 09/04/2020 Active albuterol HFA (PROVENTIL HFA,VENTOLIN HFA,PROAIR HFA) 90 mcg/actuation inhaler Inhale 2 puffs every 4 (four) hours as needed Active esomeprazole DR (NexIUM) 20 mg capsule Take 20 mg by mouth daily Active cholecalciferol (VITAMIN D-3) 5,000 unit capsule Take 5,000 Units by mouth daily Active ascorbic acid (VITAMIN C) 1,000 mg tablet Take 1,000 mg by mouth daily Active Flovent HFA 110 mcg/actuation inhaler 08/22/2022 Active Proair Digihaler 90 mcg/actuation inhaler INHALE 2 PUFFS BY MOUTH UP TO 4 TIMES A DAY NEEDED ONLY. 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 Vaginal atrophy 12/23/2017 Inguinal pain 06/16/2013 Social History Tobacco Use Types Packs/Day Years Used Date Smoking Tobacco: Never Smokeless Tobacco: Never Alcohol Use Standard Drinks/Week Comments Yes 0 (1 standard drink = 0.6 oz pur e alcohol) Social Personal Safety Answer Date Recorded Getting School Help Needed Not on file 08/19 Comments No Sex and Gender Information Value Date Recorded Sex Assigned at Not on file Legal Sex Female 7:09 AM SURGICAL SCRUB TECH Gender Identity Female 01/21/2022 7:24 PM CDT Sexual Orientation Not on file Last Filed Vital Signs Vital Sign Reading Time Taken Comments Blood Pressure 138/80 08/26/2023 10:37 AM SURGICAL SCRUB TECH Pulse 70 10/24/2019 3:54 PM SURGICAL SCRUB TECH Temperature 36.7 ??C (98 ??F) 10/24/2019 3:54 PM SURGICAL SCRUB TECH Respiratory Rate - - Oxygen Saturation 96% 10/24/2019 3:54 PM SURGICAL SCRUB TECH Inhaled Oxygen Concentration - - Weight 66.5 kg (146 lb 9.6 oz) 08/26/2023 10:37 AM SURGICAL SCRUB TECH Height 165.1 cm (5' 5 ) 08/26/2023 10:37 AM SURGICAL SCRUB TECH Body Mass Index 24.4 08/26/2023 10:37 AM SURGICAL SCRUB TECH Plan of Treatment Not on file Procedures Procedure Name Priority Date/Time Associated Diagnosis Comments SCREENING MAMMOGRAM BILATERAL W JORGE ALBERTO Schedule Routine, Read Routine (OP Routine) 04/29/2024 11:21 AM CDT Screening mammogram, encounter for HEPATITIS C ANTIBODY Routine 08/06/2020 11:12 AM SURGICAL SCRUB TECH THINPREP PAP Routine 03/02/2015 1:00 PM CDT from Last 3 Months or Most Recently Relevant to Health Maintenance Results * Screening Mammogram Bilateral W Jorge Alberto (04/29/2024 11:21 AM CDT) Anatomical Region Laterality Modality Breast Bilateral Mammography Narrative 05/02/2024 1:40 PM CDT Mammogram Technique: Bilateral Digital Breast Tomosynthesis, Bilateral C-view 2D Screening mammogram. ??Views obtained: ??bilateral craniocaudal and bilateral mediolateral oblique. ??Computer Aided Detection was performed. Mammogram Findings: The present examination has been compared to prior imaging studies performed at [facility] on 02/15/2021, 02/21/2022 and 04/10/2023. There are scattered areas of fibroglandular density. There is no suspicious abnormality in either breast. Impression: There is no mammographic evidence of malignancy. Annual screening mammography is recommended. OVERALL FINAL ASSESSMENT: BI-RADS CATEGORY 1: ??Negative. Procedure Note Nathaly Sharif MD - 05/02/2024 Mammogram Technique: Bilateral Digital Breast Tomosynthesis, Bilateral C-view 2D Screening mammogram. Views obtained: bilateral craniocaudal and bilateral mediolateral oblique. Computer Aided Detection was performed. Mammogram Findings: The present examination has been compared to prior imaging studies performed at [facility] on 02/15/2021,02/21/2022 and 04/10/2023. There are scattered areas of fibroglandular density. There is no suspicious abnormality in either breast. Impression: There is no mammographic evidence of malignancy. Annual screening mammography is recommended. OVERALL FINAL ASSESSMENT: BI-RADS CATEGORY 1: Negative. us Self Screening Mammogram IMG MAMMO PROCEDURES Fi nal Result * Hepatitis C antibody (08/06/2020 11:12 AM SURGICAL SCRUB TECH) Hep C Ab NONREACT NONREACTIVE [facility] Comment: Siemens [employer] using [employer] (chemiluminescent immunoassay) technology. NONREACTIVE: Antibodies to Hepatitis C not detected. This does not exclude early acute Hepatitis C infection, possibility of exposure to Hepatitis C, antibodies below detection limit, or to lack of antibody reactivity to the antigen used in this assay. EQUIVOCAL: Antibodies to Hepatitis C may or may not be present. ??Sample to be confirmed by real-time PCR method. REACTIVE: Antibodies to Hepatitis C detected.Sample to be confirmed by real-time PCR method. 08/06/2020 11:1 2 AM SURGICAL SCRUB TECH 08/06/2020 12:12 PM SURGICAL SCRUB TECH Narrative Resulting Agency Comment CLI us Get Rodrigues MD LAB MICROBIOLOGY - GENERAL ORDERABLES [place] [address], [facility] [phone] * ThinPrep Pap (03/02/2015 1:00 PM CDT) Thin Prep Pap Smear SEE BELOW () 03/08 5:51 PM CDT [facility] HISTORICAL RESULTS Comment: Cage Unloader ThinPrep Cytology Final Report ? ThinPrep Pap Specimen Source ? Vagina ?? Specimen Adequacy ? Satisfactory for interpretation, endocervical cells ?? (transformation zone) not present. ?? Interpretation ? Negative for intraepithelial lesion or malignancy. ?? 03/07/15 Yard Spotter: EMRE Franco(ASCP) ?Reviewed by: ALDO ?? 03/08/15 ?Verified By: Allison Kay, EMRE(ASCP) ? electronic signature ?? [facility], Department of Pathology ?? For questions regarding this case, ?? call ext. [phone] ?? CPT Code(s) ? 86587 ?? Clinical History ? Clinical Information: ?? LMP: [id number] ?? : N ?? : N ?? IUD: N ?? Hormone Therapy: N ?? Postmenopausal: N ?? Previous surgery date and type: N ?? Hysterectomy: Y ?? Chemotherapy: N ?? LILIANA Exposure: N ?? Radiation: N ?? Previous Abnormal Pap? Details: N ?? Diagnostic or Screening Pap Test: Screening ?? Performed by [employer], ?? [address] [place] [address] ?? [email or web address], Bob Arana MD - Lab. Director ?? 03/02/2015 1:00 PM CDT 03/02/2015 5:53 PM CDT us Vladimir Borden MD LAB PATHOLOGY ORDERABLE S Final Result [facility] HISTORICAL RESULTS from Last 3 Months or Most Recently Relevant to Health Maintenance Insurance [facility] [employer] Care Teams Head Gauge Unit Operator Relationship Specialty Start Date End Date Carlos Bustillos MD [address] [facility] [address] [place] [address] PCP - General Internal Medicine 08/25/22
--- OUTSIDE RECORDS SUMMARY | 2024-10-05 13:06 | XMS_ITS | Clinical Summary ---
Author Organization [facility] al Address [address] [place] [address] Care Team Providers Care Coconut Boiler Name Role Phone Carlos Bustillos MD Primary Care Provider [phone] Allergies Active Allergy Reactions Criticality Noted Date [...] 04/29/2018 Vaginal atrophy 12/23/2017 Inguinal pain 06/16/2013 Surgical History Surgery Date Site/Laterality Comments BREAST BIOPSY 05/06/2018 Left HYSTERECTOMY 09/07/2009 - 09/06/2010 Medical History Medical History Date Comments Vaginal atrophy Hypothyroidism Arthritis Osteitis pubis (CMS/HCC) (HCC) Family History Medical History Relation Name Comments Colon cancer Brother Bone cancer Father Prostate cancer Other Breast cancer Neg Hx Ovarian cancer Neg Hx Pancreatic cancer Neg Hx Uterine cancer Neg Hx Relation Name Status Comments Brother Father Mother Alive Other Social History Tobacco Use Types Packs/Day Years [...] on file Legal Sex Female 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 AM 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 Gender Identity Female 01/21/2022 7:24 PM CDT Sexual Orientation Not on file Obstetrics History Para Term AB IAB SAB Ectopic Multiple Livin g Live Births 2 2 2 2 Date Outcome GA Total Labor Labor/2nd/3rd Weight Sex Type Anes PTL Katya A1 A5 Name Clin Para Para Last Filed Vital Signs Vital Sign Reading Time Taken Comments Blood Pressure 138/80 08/26/2023 10:37 AM 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 Pulse 70 10/24/2019 3:54 PM 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 Temperature 36.7 ??C (98 ??F) 10/24/2019 3:54 PM 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 Respiratory Rate - - Oxygen Saturation 96% 10/24/2019 3:54 PM 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 Inhaled Oxygen Concentration - - Weight 66.5 kg (146 lb 9.6 oz) 08/26/2023 10:37 AM 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 Height 165.1 cm (5' 5 ) 08/26/2023 10:37 AM 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 Body Mass Index 24.4 08/26/2023 10:37 AM 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 Plan of Treatment Health Maintenance Due Date Last Done Comments Colon Cancer Screening-Colonoscopy 1966 Depression Screening 1966 Pneumococcal vaccine <65 (1 of 2 - PCV) 1972 DTaP/Tdap/Td Vaccine (1 - Tdap) 1977 Hepatitis B Screening 1984 Influenza Vaccine (#1) 2024 06/26/2021, 2019 Regular Well Visit/Exam 18-64 08/26/2024, 08/25/2022, 08/19/2021, Additional history exists Breast Cancer Screening-Mammogram 04/29/2025 04/29/2024, 04/10/2023, 02/21/2022, Additional history exists Cervical Cancer Screening Discontinued 03/02/2015 Hepatitis C Screening Completed 08/06/2020, 020 Zoster Vaccine Completed 07/21/2023, 03/11/2023 Procedures Procedure Name Priority Date/Time Associated Diagnosis Comments SCREENING MAMMOGRAM BILATERAL W JORGE ALBERTO Schedule Routine, Read Routine (OP Routine) 04/29/2024 11:21 AM CDT Screening mammogram, encounter for HEPATITIS C ANTIBODY Routine 08/06/2020 11:12 AM 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 THINPREP PAP Routine 03/02/2015 1:00 PM CDT [...] compared to prior imaging studies performed at [facility] on 02/15/2021, 02/21/2022 and 04/10/2023. There are [...] compared to prior imaging studies performed at [facility] on 02/15/2021,02/21/2022 and 04/10/2023. There are scattered areas of fibroglandular density. There is no suspicious abnormality in either breast. Impression: There is no mammographic evidence of malignancy. Annual screening mammography is recommended. OVERALL FINAL ASSESSMENT: BI-RADS CATEGORY 1: Negative. Self Screening Mammogram IMG MAMMO PROCEDURES Fi nal Result * Hepatitis C antibody (08/06/2020 11:12 AM 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) Hep C Ab NONREACT NONREACTIVE [facility] Comment: Siemens Bacter[employer] using [employer] (chemiluminescent immunoassay) technology. NONREACTIVE: Antibodies [...] real-time PCR method. 08/06/2020 11:1 2 AM 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 08/06/2020 12:12 PM 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 Narrative Resulting Agency Comment CLI Get Rodrigues MD LAB MICROBIOLOGY - GENERAL ORDERABLES Final Result [facility] [address] [place] [address], [facility] [phone] * ThinPrep Pap (03/02/2015 1:00 PM CDT) Thin Prep Pap Smear SEE BELOW () 03/08 5:51 PM CDT [facility] HISTORICAL RESULTS Comment: Capsule Inspector ThinPrep Cytology Final Report ? ThinPrep Pap Specimen Source ? Vagina ?? Specimen Adequacy ? Satisfactory for interpretation, endocervical cells ?? (transformation zone) not present. ?? Interpretation ? Negative for intraepithelial lesion or malignancy. ?? 03/07/15 Oncology Rep: EMRE Franco(ASCP) ?Reviewed by: ALDO ?? 03/08/15 ?Verified By: EMRE Hodge(ASCP) ? electronic signature ?? [facility], Department of Pathology ?? For questions regarding this case, ?? call ext. [phone] ?? CPT Code(s) ? 57271 ?? Clinical History ? Clinical Information: ?? LMP: [id number] ?? : N ?? : N ?? IUD: N ?? Hormone Therapy: N ?? Postmenopausal: N ?? Previous surgery date and type: N ?? Hysterectomy: Y ?? Chemotherapy: N ?? LILIANA Exposure: N ?? Radiation: N ?? Previous Abnormal Pap? Details: N ?? Diagnostic or Screening Pap Test: Screening ?? Performed by [facility] [employer] [facility]), ?? [address] [facility] [place] [address] ?? [email or web address], Bob Arana MD - Lab. Director ?? 03/02/2015 1:00 PM CDT 03/02/2015 5:53 PM CDT Vladimir Borden MD LAB PATHOLOGY ORDERABLE S Final Result [facility] HISTORICAL RESULTS from Last 3 Months or Most Recently Relevant to Health Maintenance Insurance [employer] [place] [employer] [place] [employer] [place] Care Teams Coconut Boiler Relationship Specialty Start Date End Date Carlos Bustillos MD [address] [facility] [address] [place], [place] [id number] PCP - General Internal Medicine 08/25/22
--- OUTSIDE RECORDS SUMMARY | 2024-10-05 13:06 | XMS_ITS | Clinical Summary ---
Author Organization [facility] Address [address] [facility] [place] [address] [place] [address] Care Team Providers Care Wood Car Builder Name Role Phone Unavailable Primary Care Provider Unavailabl e Allergies Active Allergy Reactions Criticality Noted Date Comments Codeine Hives,Unknown 04/30/2018 Montelukast Other (see comment) Low 06/26/2021 Tremors Tremors Sulfa Antibiotics Rash Low 10/18/2019 Medications albuterol sulfate HFA 108 (90 Base) MCG/ACT inhaler Inhale 2 puffs into the lungs every 4 (four) hours as needed. Active acyclovir 5 % ointment 0 Active esomeprazole 20 MG capsule Take 20 mg by mouth every morning before breakfast. Active Ascorbic Acid 1000 MG Tab Take 1,000 mg by mouth daily. Active vitamin D3, cholecalciferol, (CHOLECALCIFEROL) 5000 UNITS capsule Take 5,000 Units by mouth daily. Active FLUTICASONE 110 MCG/ACT inhalerIndications: Mild persistent asthma without complication (HHS/HCC) INHALE 2 PUFFS INTO THE LUNGS TWICE DAILY. 12 g 5 2 Active predniSONE (DELTASONE) 10 mg tabletIndications:M ild persistent asthma without complication (HHS/HCC) Take 4 tablets daily for 3 days, then take 3 tablets daily for 3 days, then take 2 tablets daily for 3 days, then take 1 tablet daily for 3 days. 30 tablet 2 Active levothyroxine (SYNTHROID) 100 MCG tabletIndications:A cquired hypothyroidism Take 1 tablet (100 mcg total) by mouth every morning. 30 tablet 5 Active Active Problems Problem Noted Date Diagnosed Date Dyspnea on exertion 09/25/2021 Tachycardia 09/25/2021 Hypothyroidism (acquired) 06/26/2021 Gastroesophageal reflux disease without esophagi tis 06/26/2021 Hypercholesterolemia 06/26/2021 Mild persistent asthma without complication (HHS /HCC) 06/26/2021 Distortion of contour of breast 04/29/2018 Vaginal atrophy 12/23/2017 Inguinal pain 06/16/2013 Hypothyroid Disease of thyroid gland Resolved Problems Problem Noted Date Diagnosed Date Resolved Date Need for immunization against influenza 06/26/2021 07/01/2021 Colon cancer screening 06/26/202107/01 Immunizations Name Administration Dates Next Due Fluzone 6 Months+ Quad (0.5 mL Prefilled Syringe ) 06/26/2021 Influenza Adult (Generic) 07/11/2020 Family History Medical History Relation Comments Cancer Brother Colon Cancer Brother No Known Problems Daughter Bone cancer Father Cancer Father Hypertension Mother Pulmonary Fibrosis Sister 1 Heart Disease Sister 2 Pulmonary Fibrosis Sister 3 No Known Problems Son Relation Status Comments Brother Daughter Alive Father Mother Alive Sister 1 Sister 2 Alive Sister 3 Alive Son Alive Social History Tobacco Use Types Packs/Day Years Used Date Smoking Tobacco: Never Smokeless Tobacco: Never Tobacco Cessation:Counseling Given: No Alcohol Use Standard Drinks/Week Comments Yes 0 [...] 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 Not on file Not on file Not on file Last Filed Vital Signs Vital Sign Reading Time Taken Comments Blood Pressure 138/84 11/05/2021 9:[address] Pulse 91 11/05/2021 9:[address] Temperature 35.7 ??C (96.3 ??F) 10/22/2021 8:51 AM CS T Respiratory Rate 16 10/22/2021 8:[address] Oxygen Saturation 99% 11/05/2021 9:[address] Inhaled Oxygen Concentration - - Weight 73.5 kg (162 lb) 11/05/2021 9:[address] Height 167.6 cm (5' 6 ) 11/05/2021 9:[address]ER Body Mass Index 26.15 11/05/2021 9:[address] Plan of Treatment Health Maintenance Due Date Last Done Comments Annual Physical 1969 Pneumococcal Vaccine: Pediatrics (0 to 5 Years) and At-Risk Patients (6 to 64 Years) (1 of 2 - PCV) 1972 PHQ-2 (Physician Venetie Ira) 1978 Hepatitis C 1984 DTaP, Tdap and Td Vaccines ( 1 - Tdap) 1985 Hepatitis B Vaccines (1 of 3 - 19+ 3-dose series) 1985 Zoster Vaccines (1 of 2) 2016 Mammogram Screening 04/30/2020 04/30/2018, 04/19/2018 COVID-19 Vaccine (2023-2 5 season) 2024 Influenza Adult (#1) 2024 06/26/2021, 07/11/2020 PHQ-2 (Physician Venetie Ira) 09/07/2024 Colorectal Cancer Screening Colonoscopy (10 Years) 07/18/2032 07/18/2022, 07/07/2022, 07/07/2022 Meningococcal B Vaccine Aged Out No l onger eligible based on patient's age to complete this topic Meningococcal Vaccine Aged Out No chanell sonia eligible based on patient's age to complete this topic RSV Immunizations Under 20 Months Aged Out No longer eligible b ased on patient's age to complete this topic Procedures Procedure Name Priority Date/Time Associated Diagnosis Comments COLONOSCOPY GENERIC (SCAN ORDER) 07/18/2022 MAMMOGRAM GENERIC (SCAN ORDER) 04/30/2018 from Last 3 Months or Most Recently Relevant to Health Maintenance Results * COLONOSCOPY GENERIC (07/18/2022) 07/18/2022 us Doc Med Group Scanned SCANNING Final Resu lt * MAMMOGRAM GENERIC (04/30/2018) Anatomical Region Laterality Modality Other 04/30/2018 Narrative 04/30/2018 Ordered by an unspecified provider. us Documents Scanned SCANNING Final Result from Last 3 Months or Most Recently Relevant to Health Maintenance Insurance [facility]
== END 2024-10-05 13:18 | disposition home or self-care (01) ==
PROVIDERS: Emergency Provider Nurse Practitioner Family; PCP Internal Medicine
DX: J06.9 Acute upper respiratory infection, unspecified (principal); Z20.822 Contact with and (suspected) exposure to COVID-19; J45.909 Unspecified asthma, uncomplicated; E03.9 Hypothyroidism, unspecified; Z86.16 Personal history of COVID-19
CPT/HCPCS: 71046; 87426; 87804; 99213; G0463